=== PATIENT | male | born 1965 | race Caucasian/White ===

== ENCOUNTER 2017-07-15 15:36 | Emergency (ER) | payer OTHER, MEDICARE ==
[~2017-07-15] VITALS: Ht 190.5 cm; Wt 124.7 kg
[~2017-07-15 15:36] MED LIST: LIORESAL 10MG T10 MG PO; MOTRIN 600 MG600 MG PO; RISPERIDONE0.25 MG PO; TRAMADOL50 MG PO
--- NOTE | 2017-07-15 16:41 | ULTRASOUND REPORT ---
EXAMINATION: US TRIPLEX LOWER EXTREMITY, LEFT CLINICAL INFORMATION: Left lower extremity pain and swelling. COMPARISON: None TECHNIQUE: Color-flow triplex imaging with spectral analysis and compression Doppler were performed on the lower extremity. FINDINGS: Nonocclusive thrombus is noted within the midportion of the left femoral vein extending distally through the lower femoral vein to the popliteal vein. The common femoral vein, greater saphenous vein, profunda femoral vein are patent and unremarkable in appearance. The calf veins are not well visualized. There is no Lopes's cyst. IMPRESSION: Nonocclusive thrombus in the midportion of the superficial femoral vein extending distally into the popliteal vein. The calf veins are not well visualized. This critical result was discussed with Jessica Rodriguez at 04:37 PM on 07/15/2017 and it was ascertained that the content and urgency of the report was understood at the time of direct communication.
--- NOTE | 2017-07-15 16:57 | ED UPPER/LOWER EXTREMITY COMPL ---
History of Present Illness General Chief Complaint: General Adult Stated Complaint: SENT IN BY WALKIN FOR ?DVT TO L LEG Source: patient Exam Limitations: poor historian Vital Signs & Intake/Output Vital Signs & Intake/Output Vital Signs Date Time Temp Pulse Resp B/P B/P Pulse O2 O2 Flow FiO2 Mean Ox Delivery Rate 07/15 1747 97.5 81 81 140/87 98 07/15 1548 98.3 99 18 141/82 96 Room Air Allergies Coded Allergies: NO KNOWN ALLERGIES (05/29/14) Reconcile Medications Risperidone 0.25 MG TABLET 3 TAB PO QPM MENTAL HEALTH (Reported) Rivaroxaban (Xarelto) 15 MG TABLET 1 TAB PO BID dvt Triage Note: 51M WITH HX DVT BILATERAL LOWER EXTREMITIES SIB URGENT CARE TO R/O LEFT LEG DVT. REPORTS PAIN AND SWELLING TO UPPER THIGH AND NOW WARMTH, REDNESS AND INCREASED SIZE TO ENTIRE LEG STARTING LAST NIGHT. DENIES IVC FILTER OR THINNERS. DENIES CP/PALP/SOB OR HEADACHES. -N/V/D Triage Nurses Notes Reviewed? yes Onset: Abrupt Duration: day(s):, constant Timing: recent history Severity: mild, moderate Pain/Injury Location: Left: Leg. HPI: 51-year-old male comes into the emergency room with complaints of swelling to his left lower leg. He reports that the symptoms began a few days ago. He has a history of DVT in his right leg. Denies any fever chills. Denies any trauma. Denies any chest pain or shortness of breath. Comes in for further evaluation. (Benito Peters) Past History Travel History Traveled to [place] past 21 day No Medical History Any Pertinent Medical History? 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 No (Benito Peters) Review of Systems Review of Systems Constitutional: Reports: no symptoms. EENTM: Reports: no symptoms. Respiratory: Reports: no symptoms. Cardiovascular: Reports: no symptoms. Gastrointestinal/Abdominal: Reports: no symptoms. Genitourinary: Reports: no symptoms. Musculoskeletal: Reports: see HPI. Skin: Reports: no symptoms. Neurological/Psychological: Reports: no symptoms. Hematologic/Endocrine: Reports: no symptoms. Immunological: Reports: no symptoms. All Other Systems: Reviewed and Negative (Benito Peters) Physical Exam Physical Exam General Appearance: well developed/nourished, mild distress Head: atraumatic Eyes: Bilateral: normal appearance, EOMI. Ears, Nose, Throat: normal ENT inspection, hearing grossly normal Neck: normal inspection Back: normal inspection Leg Left: normal range of motion, swelling, soft tissue tenderness Neurologic/Tendon: normal sensation, normal motor functions, normal tendon functions, no evidence tendon injury, no pulse deficit Skin: intact, normal color, warm/dry (Benito Peters) Progress Differential Diagnosis: contusion, DVT, fracture, sprain, tendon injury Plan of Care: Current Medications Sig/Tristin Start time Last Medication Dose Stop Time Status Admin Rivaroxaban 15 MG ONCE ONE 07/15 1799 UNVr (Xarelto) 07/15 180007/15/2017 5:41:19 PM Phone call was placed for vascular surgeon. Waiting operations developer back. Diagnostic Imaging: Viewed by Me: Ultrasound. Discussed w/RAD: Ultrasound. Radiology Impression: PATIENT: ODILIA ARNDT JR PRESENT AGE: 51 PATIENT ACCOUNT NO: [id number] : 67 LOCATION: [facility] ORDERING PHYSICIAN: Jessica SALDIVAR SERVICE DATE: 07/15/17 EXAM TYPE: US - US-DUPLEX VENOUS EXTREM UNI EXAMINATION: US TRIPLEX LOWER EXTREMITY, LEFT CLINICAL INFORMATION: Left lower extremity pain and swelling. COMPARISON: None TECHNIQUE: Color-flow triplex imaging with spectral analysis and compression Doppler were performed on the lower extremity. FINDINGS: Nonocclusive thrombus is noted within the midportion of the left femoral vein extending distally through the lower femoral vein to the popliteal vein. The common femoral vein, greater saphenous vein, profunda femoral vein are patent and unremarkable in appearance. The calf veins are not well visualized. There is no Lopes's cyst. IMPRESSION: Nonocclusive thrombus in the midportion of the superficial femoral vein extending distally into the popliteal vein. The calf veins are not well visualized. This critical result was discussed with Jessica Rodriguez at 04:37 PM on 07/15/2017 and it was ascertained that the content and urgency of the report was understood at the time of direct communication. DICTATED BY: Hardik Albright MD DATE/TIME DICTATED:07/15/171625 PROGRAM ATTENDANT:LESLEE DATE/TIME TRANSCRIBED:07/15/171625 CONFIDENTIAL, DO NOT COPY WITHOUT APPROPRIATE AUTHORIZATION. <Electronically signed in Other Vendor System> SIGNED BY: Hardik Albright MD 07/15/17 1642 Comments: 07/15/2017 5:58:48 PM Patient clinically looks well. Patient is in no apparent distress. Patient is nontoxic-appearing. No chest pain shortness of breath. No suspicion for PE. Spoke with Dr. BARRETT on-call for vascular surgery. Patient will follow-up with Dr. darby. Return if any other concerns worsening symptoms. Understands and agrees with plan of care. Results were discussed with the patient's mother with permission of the patient (Benito Peters) Departure Departure Disposition: HOME OR SELF CARE Condition: Stable Clinical Impression Primary Impression: Deep vein thrombosis (DVT) of left lower extremity Referrals: Gabriela Christensen MD (PCP/Family) Sameer Darby MD Additional Instructions: Takes a relative as prescribed. Follow-up with vascular surgeon. Return if any concerns worsening symptoms. Please go over all results of today's visit with your primary care doctor. Contact your primary care doctor to let them know you were here in the emergency room. There may be nonspecific findings which may not be related to your visit today here in the emergency room but may require further evaluation and chronic monitoring by your primary care doctor. If you had a laceration today the chance of foreign body always remains. You should follow-up with your primary care doctor for recheck in 3-5 days for a wound check. If you had an x-ray done there is a chance that a fracture could have been missed on initial read and you should follow-up with your primary care doctor for repeat x-rays if symptoms persist. If your blood pressure was elevated here in the emergency room please have rechecked by our primary care doctor within the next 48. If you were prescribed a narcotic here in the emergency room or any type of controlled substances you're not allowed to drive while taking this medication or operate any type of heavy machinery. Narcotics can make you feel lightheaded dizziness nausea and can cause constipation. You may need to mushroom picker a stool softener. Thank you for choosing [facility] emergency room. Please return to the emergency room immediately if you have any other concerns worsening of symptoms. Departure Forms: Customer Survey General Discharge Information Prescriptions: Current Visit Scripts Rivaroxaban (Xarelto) 1 TAB PO BID #42 TAB (Benito Peters) PA/ELECTRICAL CONTROLS DESIGNER Co-Sign Statement Statement: ED Attending supervision documentation- [X] I saw and evaluated the patient. I have also reviewed all the pertinent lab results and diagnostic results. I agree with the findings and the plan of care as documented in the PA's/ELECTRICAL CONTROLS DESIGNER's documentation. [X] I have reviewed the ED Record and agree with the PA's/ELECTRICAL CONTROLS DESIGNER's documentation. [] Additions or exceptions (if any) to the PAs/ELECTRICAL CONTROLS DESIGNER's note and plan are summarized below: [] (Raul DIAL,Riley Judd)
[2017-07-15 17:47] VITALS: BP 140/87
[2017-07-15] MEDS ORDERED: XARELTO15 M1 PO (17:53)
== END 2017-07-15 18:32 ==
LOC: ERH 15:36
DX: I82.402 Acute embolism and thrombosis of unspecified deep veins of left lower extremity (principal)